=== PATIENT | female | born 1995 | race Caucasian/White ===

== ENCOUNTER 2019-03-05 19:46 | Inpatient (IN) | payer MEDICAID ==
[2019-03-05] MEDS ORDERED: Lactated Ringers 1,000 ML IV ONE (21:10)
[2019-03-05] MEDS ORDERED: Nalbuphine 10 MG/1 ML Vial IVPUSH ONE (21:10)
[2019-03-05] MEDS ORDERED: Lidocaine 1% 50 ML MDV INJECT ONE (21:39)
[2019-03-05] MEDS ORDERED: Oxytocin/Lactated Ringers 10 UNIT/1,000 ML BAG IV SCH ×2 (21:45)
[2019-03-05] MEDS ORDERED: Nalbuphine 10 MG/1 ML Vial IVPUSH PRN (21:54)
[2019-03-05] MEDS ORDERED: Ondansetron 4 MG/2 ML SDV IVPUSH PRN ×2 (23:10→23:51)
[2019-03-05] MEDS ORDERED: Ampicillin 2 GM in Sodium Chloride 0.9% 100 ML IV ONE (23:30)
[2019-03-05] MEDS: Lactated Ringers 1,000 ML IV SCH ×2 (23:44→23:53)
[2019-03-05] MEDS ORDERED: Phenylephrine 1 MG in Sodium Chloride 0.9% 10 ML IV SCH (23:45)
[2019-03-05] MEDS ORDERED: fentaNYL 100 MCG/2 ML SDV EPIDUR PRN (23:51)
[2019-03-05] MEDS ORDERED: fentaNYL/Bupivacaine/NS 2 MCG-0.125% 250 ML EPIDUR PRN (23:51)
[2019-03-05] MEDS ORDERED: ePHEDrine 50 MG/ML SDV IVPUSH PRN (23:51)
--- NOTE | 2019-03-05 23:57 | PCM.PREANE ---
Preanesthetic Assessment - Anesthesia/Transfusion/Family Hx Anesthesia History: Prior Anesthesia Without Reaction Family History of Anesthesia Reaction: No Transfusion History: No Prior Transfusion(s) Intubation History: Unknown - Review of Systems General: No Symptoms Pulmonary: No Symptoms Cardiovascular: No Symptoms Gastrointestinal: No Symptoms (GERD) Neurological: No Symptoms, Headache (Migraines) Other: Reports: None - Physical Assessment NPO Status Date: 03/05/19 NPO Status Time: 17:50 Vital Signs: Last Vital Signs Temp 36.6 C 03/05/19 19:58 Pulse 95 03/05/19 19:58 Resp 14 03/05/19 19:58 BP 109/66 03/05/19 19:58 Pulse Ox 99 03/05/19 19:58 Height: 1.57 m Weight: 64.773 kg ASA Class: 2 Mental Status: Alert & Oriented x3 Airway Class: Mallampati = 2 Dentition: Reports: Normal Dentition, Caries Thyro-Mental Finger Breadths: 3 Mouth Opening Finger Breadths: 3 ROM/Head Extension: Full Lungs: Clear to Auscultation, Normal Respiratory Effort Cardiovascular: Regular Rate, Regular Rhythm, No Murmurs - Lab Values: Laboratory Last Values WBC 15.72 K/mm3 (3.98-10.04) H 03/05/19 22:05 RBC 3.75 M/mm3 (3.98-5.22) L 03/05/19 22:05 Hgb 10.5 gm/dl (11.2-15.7) L 03/05/19 22:05 Hct 32.3 % (34.1-44.9) L 03/05/19 22:05 MCV 86.1 fl (79.4-94.8) 03/05/19 22:05 MCH 28.0 pg (25.6-32.2) 03/05/19 22:05 MCHC 32.5 g/dl (32.2-35.5) 03/05/19 22:05 RDW Std Deviation 39.8 fL (36.4-46.3) 03/05/19 22:05 Plt Count 217 K/mm3 (182-369) 03/05/19 22:05 MPV 10.0 fl (9.4-12.3) 03/05/19 22:05 Neut % (Auto) 71.2 % (34.0-71.1) H 03/05/19 22:05 Lymph % (Auto) 20.0 % (19.3-51.7) 03/05/19 22:05 [place] % (Auto) 7.1 % (4.7-12.5) 03/05/19 22:05 Eos % (Auto) 0.6 (0.7-5.8) L 03/05/19 22:05 Baso % (Auto) 0.3 % (0.1-1.2) 03/05/19 22:05 Neut # (Auto) 11.20 K/mm3 (1.56-6.13) H 03/05/19 22:05 Lymph # (Auto) 3.15 K/mm3 (1.18-3.74) 03/05/19 22:05 [place] # (Auto) 1.12 K/mm3 (0.24-0.36) H 03/05/19 22:05 Eos # (Auto) 0.09 K/mm3 (0.04-0.36) 03/05/19 22:05 Baso # (Auto) 0.04 K/mm3 (0.01-0.08) 03/05/19 22:05 Manual Slide Review Abnormal smear 03/05/19 22:05 Urine Color Light yellow (Yellow) 03/05/19 22:05 Urine Appearance Clear (Clear) 03/05/19 22:05 Urine pH 8.0 (5.0-8.0) 03/05/19 22:05 Ur Specific [place] 1.015 (1.005-1.030) 03/05/19 22:05 Urine Protein Negative (Negative) 03/05/19 22:05 Urine Glucose (UA) Negative (Negative) 03/05/19 22:05 Urine Ketones 2+ (Negative) H 03/05/19 22:05 Urine Occult Blood Negative (Negative) 03/05/19 22:05 Urine Nitrite Negative (Negative) 03/05/19 22:05 Urine Bilirubin Negative (Negative) 03/05/19 22:05 Urine Urobilinogen 0.2 (0.2-1.0) 03/05/19 22:05 Ur Leukocyte Esterase Negative (Negative) 03/05/19 22:05 Urine RBC Not seen /hpf (0-5) 03/05/19 22:05 Urine WBC 0-5 /hpf (0-5) 03/05/19 22:05 Ur Squamous Epith Cells 0-5 /hpf (0-5) 03/05/19 22:05 Urine Bacteria Rare /hpf (FEW) 03/05/19 22:05 Urine Mucus Not seen /hpf (FEW) 03/05/19 22:05 Blood Type A POSITIVE 03/05/19 22:05 Gel Antibody Screen Negative 03/05/19 22:05 Above labs reviewed and noted and within acceptable ranges to proceed with epidural. - Allergies Allergies/Adverse Reactions: Allergies Allergy/AdvReac Type Severity Reaction Status Date / Time codeine Allergy Hives Verified 03/05/19 21:11 - Anesthesia Plan Pre-Op Medication Ordered: None - Acknowledgements Anesthesia Type Planned: Epidural Pt an Appropriate Candidate for the Planned Anesthesia: Yes Alternatives and Risks of Anesthesia Discussed w Pt/Guardian: Yes Pt/Guardian Understands and Agrees with Anesthesia Plan: Yes PreAnesthesia Questionnaire - HOME MEDS Home Medications: Home Meds PNV95/Ferrous Fumarate/FA [ Tablet] 1 tab PO DAILY 03/05/19 [History] - CURRENT (IN HOUSE) MEDS Current Meds: Current Medications Acetaminophen (Tylenol) 650 mg PO Q4H PRN PRN Reason: Pain (Mild 1-3) and fever Calcium Carbonate/Glycine (Tums) 1,000 mg PO Q2HR PRN PRN Reason: Indigestion Ephedrine Sulfate (Ephedrine Sulfate) 5 mg IVPUSH ASDIRECTED PRN PRN Reason: Hypotension Fentanyl (Sublimaze) 100 mcg EPIDUR Q3H PRN PRN Reason: Pain Fentanyl/Bupivacaine HCl (Fentanyl/Bupivacaine/Ns 2 Mcg-0.125% 250 Ml) ml EPIDUR CONTINUOUS PRN PRN Reason: Pain Lactated Ringer's (Ringers, Lactated) 1,000 mls @ 125 mls/hr IV ASDIRECTED MARIPOSA Last Admin: 03/05/19 23:44 Dose: 125 mls/hr Oxytocin/Lactated Ringer's (Pitocin In Lr 10 Units/1,000 Ml) 10 unit in 1,000 mls @ 12 mls/hr IV TITRATE MARIPOSA; Protocol Oxytocin/Lactated Ringer's (Pitocin In Lr 10 Units/1,000 Ml) 10 unit in 1,000 mls @ 100 mls/hr IV .CONTINUOUS MARIPOSA; Protocol Ampicillin Sodium 2 gm/ Sodium (Chloride) 100 mls @ 200 mls/hr IV ONETIME ONE Stop: 03/05/19 23:59 Ampicillin Sodium 1 gm/ Sodium (Chloride) 100 mls @ 200 mls/hr IV Q4H MARIPOSA Phenylephrine HCl 1 mg/ Sodium (Chloride) 10.1 mls @ 1 mls/sec IV TITRATE MARIPOSA; Protocol Nalbuphine HCl (Nubain) 10 mg IVPUSH Q3H PRN PRN Reason: Pain (severe 7-10) Ondansetron HCl (Zofran) 4 mg IVPUSH Q4H PRN PRN Reason: Nausea/Vomiting Ondansetron HCl (Zofran) 4 mg IVPUSH ONETIME PRN PRN Reason: Nausea/Vomiting Discontinued Medications Lactated Ringer's (Ringers, Lactated) 1,000 mls @ 999 mls/hr IV .BOLUS ONE Stop: 03/05/19 22:10 Last Admin: 03/05/19 23:41 Dose: Not Given Lidocaine HCl (Xylocaine 1%) 50 ml INJECT ONETIME ONE Stop: 03/05/19 21:40 Nalbuphine HCl (Nubain) 5 mg IVPUSH ONETIME ONE Stop: 03/05/19 21:11
[2019-03-06] MEDS ORDERED: Bupivacaine 0.25% 10 ML SDV ONE
[2019-03-06] MEDS ORDERED: ePHEDrine 50 MG/ML SDV ONE
[2019-03-06] MEDS: Calcium Carbonate 500 MG Tab.Chew PO PRN ×2 (00:09→12:58)
[2019-03-06] MEDS: Lactated Ringers 1,000 ML IV SCH ×3 (01:49→07:26)
[2019-03-06] MEDS: Ampicillin 1 GM in Sodium Chloride 0.9% 100 ML IV SCH ×3 (04:52→12:45)
[2019-03-06] MEDS: Acetaminophen 325 MG Tab PO PRN ×3 (07:26→22:13)
--- NOTE | 2019-03-06 16:36 | PCM.DEL ---
L & D Note - General Info Date of Service: 03/06/19 Mother's Due Date: 04/02/19 - Delivery Note Labor: Spontaneous, Augmented by ARM Infant Delivery Method: Spontaneous Vaginal Delivery-Single Delivery Mode: Spontaneous Presentation: Left Occiput Anterior (ADOLFO) Nuchal Cord: None Anesthesia Type: Epidural Amniotic Fluid Description: Clear Episiotomy Type: None Laceration: 1st Degree Suture type: Vicryl Suture size: 3-0 Placenta: Intact, Spontaneous Cord: 3 Vessels Estimated Blood Loss: 200 Resuscitation Needed: Yes [place]: Suctioned, Bulb Syringe, Stimulated, Warmed Provider: Lucero Mlaone Score 1 min: 7 Score 5 min: 8 Second Stage Interventions: Reports: Encouragement Given Delivery Comments (Free Text/Narrative):: Stage 1: Leeanne was admitted on 03/05/19 for signs of labor and transfer from [place] via ambulance at approximately 36 weeks gestational age. On admission the patient's cervix was dilated 3 cm and she was of unknown GBS status. Epidural was placed for anesthesia. Patient progressed to 4 cm and ARM was performed by Dr. Malone. The patient then progressed to complete and pushing. Stage 2:On 03/06/19 patient had a normal vaginal delivery of a live female infant at 1558. Apgars of 7 and 8. Weight of 2980 grams (6.2 lbs) Length of 19.5. There was no nuchal cord. delivered in ADOLFO position. The cord was double clamped and cut by father of the baby. Infant was placed on the mother's abdomen and stimulated and then taken to the warmer for resuscitation. Stage 3: She had spontaneous delivery of an intact placenta in Birgit presentation. Three vessel cord. She was given Pitocin and fundal massage. She had a midline 1st degree perineal laceration repaired with 3-0 Vicryl. Mom was stable to recovery, baby taken to the nursery for further oxygen due to retractions and grunting. EBL of 200 mL. - General Info Date of Service: 03/06/19 - Patient Data Vitals - Most Recent: Last Vital Signs Temp 97.9 F 03/05/19 19:58 Pulse 95 03/05/19 19:58 Resp 14 03/05/19 19:58 BP 109/66 03/05/19 19:58 Pulse Ox 99 03/05/19 19:58 Weight - Most Recent: 64.773 kg I&O - Last 24 Hours: Intake & Output 03/06/19 03/06/19 03/06/19 06:59 14:59 22:59 Intake Total 4100 60 Balance 4100 60 Lab Results Last 24 Hours: Laboratory Results - last 24 hr 03/05/19 03/05/19 03/05/19 Range/Units 22:05 22:05 22:05 WBC 15.72 H (3.98-10.04) K/mm3 RBC 3.75 L (3.98-5.22) M/mm3 Hgb 10.5 L (11.2-15.7) gm/dl Hct 32.3 L (34.1-44.9) % MCV 86.1 (79.4-94.8) fl MCH 28.0 (25.6-32.2) pg MCHC 32.5 (32.2-35.5) g/dl RDW Std Deviation 39.8 (36.4-46.3) fL Plt Count 217 (182-369) K/mm3 MPV 10.0 (9.4-12.3) fl Neut % (Auto) 71.2 H (34.0-71.1) % Lymph % (Auto) 20.0 (19.3-51.7) % [place] % (Auto) 7.1 (4.7-12.5) % Eos % (Auto) 0.6 L (0.7-5.8) Baso % (Auto) 0.3 (0.1-1.2) % Neut # (Auto) 11.20 H (1.56-6.13) K/mm3 Lymph # (Auto) 3.15 (1.18-3.74) K/mm3 [place] # (Auto) 1.12 H (0.24-0.36) K/mm3 Eos # (Auto) 0.09 (0.04-0.36) K/mm3 Baso # (Auto) 0.04 (0.01-0.08) K/mm3 Manual Slide Review Abnormal smear Urine Color Light yellow (Yellow) Urine Appearance Clear (Clear) Urine pH 8.0 (5.0-8.0) Ur Specific [place] 1.015 (1.005-1.030) Urine Protein Negative (Negative) Urine Glucose (UA) Negative (Negative) Urine Ketones 2+ H (Negative) Urine Occult Blood Negative (Negative) Urine Nitrite Negative (Negative) Urine Bilirubin Negative (Negative) Urine Urobilinogen 0.2 (0.2-1.0) Ur Leukocyte Esterase Negative (Negative) Urine RBC Not seen (0-5) /hpf Urine WBC 0-5 (0-5) /hpf Ur Squamous Epith Cells 0-5 (0-5) /hpf Urine Bacteria Rare (FEW) /hpf Urine Mucus Not seen (FEW) /hpf Blood Type A POSITIVE Gel Antibody Screen Negative Med Orders - Current: Current Medications Acetaminophen (Tylenol) 650 mg PO Q4H PRN PRN Reason: Pain (Mild 1-3) and fever Last Admin: 03/06/19 11:41 Dose: 650 mg Calcium Carbonate/Glycine (Tums) 1,000 mg PO Q2HR PRN PRN Reason: Indigestion Last Admin: 03/06/19 12:58 Dose: 1,000 mg Ephedrine Sulfate (Ephedrine Sulfate) 5 mg IVPUSH ASDIRECTED PRN PRN Reason: Hypotension Fentanyl (Sublimaze) 100 mcg EPIDUR Q3H PRN PRN Reason: Pain Last Admin: 03/06/19 00:03 Dose: 100 mcg Fentanyl/Bupivacaine HCl (Fentanyl/Bupivacaine/Ns 2 Mcg-0.125% 250 Ml) 0 ml EPIDUR CONTINUOUS PRN PRN Reason: Pain Last Admin: 03/06/19 00:04 Dose: 250 ml Lactated Ringer's (Ringers, Lactated) 1,000 mls @ 125 mls/hr IV ASDIRECTED MARIPOSA Last Admin: 03/06/19 07:26 Dose: 125 mls/hr Oxytocin/Lactated Ringer's (Pitocin In Lr 10 Units/1,000 Ml) 10 unit in 1,000 mls @ 12 mls/hr IV TITRATE MARIPOSA; Protocol Last Titration: 03/06/19 16:00 Dose: 500 mls/hr Oxytocin/Lactated Ringer's (Pitocin In Lr 10 Units/1,000 Ml) 10 unit in 1,000 mls @ 100 mls/hr IV .CONTINUOUS MARIPOSA; Protocol Ampicillin Sodium 1 gm/ Sodium (Chloride) 100 mls @ 200 mls/hr IV Q4H MARIPOSA Last Admin: 03/06/19 12:45 Dose: 200 mls/hr Phenylephrine HCl 1 mg/ Sodium (Chloride) 10.1 mls @ 1 mls/sec IV TITRATE MARIPOSA; Protocol Nalbuphine HCl (Nubain) 10 mg IVPUSH Q3H PRN PRN Reason: Pain (severe 7-10) Ondansetron HCl (Zofran) 4 mg IVPUSH Q4H PRN PRN Reason: Nausea/Vomiting Last Admin: 03/06/19 01:31 Dose: 4 mg Ondansetron HCl (Zofran) 4 mg IVPUSH ONETIME PRN PRN Reason: Nausea/Vomiting Discontinued Medications Lactated Ringer's (Ringers, Lactated) 1,000 mls @ 999 mls/hr IV .BOLUS ONE Stop: 03/05/19 22:10 Last Admin: 03/05/19 23:41 Dose: Not Given Ampicillin Sodium 2 gm/ Sodium (Chloride) 100 mls @ 200 mls/hr IV ONETIME ONE Stop: 03/05/19 23:59 Last Admin: 03/05/19 23:52 Dose: 200 mls/hr Lidocaine HCl (Xylocaine 1%) 50 ml INJECT ONETIME ONE Stop: 03/05/19 21:40 Nalbuphine HCl (Nubain) 5 mg IVPUSH ONETIME ONE Stop: 03/05/19 21:11 - Problem List & Annotations (1) with 36 to 37 weeks completed gestation SNOMED Code(s): 158390120 Code(s): NPN7809 - Status: Acute Current Visit: Yes (2) Active labor SNOMED Code(s): 6500072 Code(s): O60.10X0 - LABOR W DELIVERY, UNSP TRIMESTER, UNSP Status: Acute Current Visit: Yes (3) Vaginal delivery SNOMED Code(s): 675514485 Code(s): O80 - ENCOUNTER FOR FULL-TERM UNCOMPLICATED DELIVERY Status: Acute Current Visit: Yes (4) First degree perineal laceration during delivery SNOMED Code(s): 909094405 Code(s): O70.0 - FIRST DEGREE PERINEAL LACERATION DURING DELIVERY Status: Acute Current Visit: Yes - Problem List Review Problem List Initiated/Reviewed/Updated: Yes - Plan Plan:: Plan: * Admit to inpatient following * Continue Pitocin per protocol following delivery of placenta and lactated ringers until able to resume regular diet * Regular diet * Vitals per unit routine * assistance as needed * Continue to assess for Lochia * Tylenol and ibuprofen for pain management * Planned discharge home day number two
--- NOTE | 2019-03-06 16:38 | PCM.LDHP ---
L&D History of Present Illness - General Date of Service: 03/06/19 Admit Problem/Dx: Patient Status Order with Admit Dx/Problem 03/05/19 19:50 Patient Status [ADT] Routine 03/05/19 22:00 Patient Status [ADT] Routine Admission Diagnosis/Problem Admission Diagnosis/Problem Source of Information: Patient, Family History Limitations: Reports: No Limitations - History of Present Illness Introduction:: Patient is a 23 year old female who presents at approximately 36 1/7 gestational age for evaluation of labor. The patient was transferred from [place] via ambulance. Per the patient, the patient's care has been routine, however records are unavailable at this time. She reports that she received care in [place] and has signed a release of information. Per the patient, the AYO is 04/02/19. Patient does report having an ultrasound done. Labs taken in [place] prior to transfer indicate a WVC of 14.8, hemoglobin of 10.5 and platelets of 220,000. Unknown GBS status. Prior OB history includes a term with of a live female with approximately 15 minutes of pushing. Patient desires an epidural and plans to bottle feed. Pain Score: 6 - Related Data Allergies/Adverse Reactions: Allergies Allergy/AdvReac Type Severity Reaction Status Date / Time codeine Allergy Hives Verified 03/05/19 21:11 Home Medications: Home Meds PNV95/Ferrous Fumarate/FA [ Tablet] 1 tab PO DAILY 03/05/19 [History] Past Medical History Gastrointestinal History: Reports: GERD [employer] History: Reports: Neurological History: Reports: Migraines - Past Surgical History HEENT Surgical History: Reports: Myringotomy w Tube(s), Tonsillectomy Social & Family History - Family History Family Medical History: Noncontributory - Tobacco Use Smoking Status *Q: Never Smoker Second Hand Smoke Exposure: No - Caffeine Use Caffeine Use: Reports: None - Recreational Drug Use Recreational Drug Use: No H&P Review of Systems - Review of Systems: Review Of Systems: See Below General: Reports: No Symptoms HEENT: Reports: No Symptoms Pulmonary: Reports: No Symptoms Cardiovascular: Reports: No Symptoms Gastrointestinal: Reports: No Symptoms Musculoskeletal: Reports: No Symptoms Skin: Reports: No Symptoms Neurological: Reports: No Symptoms L&D Exam - Exam Exam: See Below - Vital Signs Vital Signs: Last Vital Signs Temp 97.9 F 03/05/19 19:58 Pulse 95 03/05/19 19:58 Resp 14 03/05/19 19:58 BP 109/66 03/05/19 19:58 Pulse Ox 99 03/05/19 19:58 Weight: 64.773 kg - OB Specific Contraction Intensity: Mild to Moderate Movement: Active Heart Tones: Present Heart Rate (FHR) Variability: Moderate (6-25 bmp) Presentation: Left Occiput Anterior (ADOLFO) - Malone Score Malone Score Dilation: 3-4 cm - Exam General: Alert, Oriented HEENT: Conjunctiva Clear, EOMI, Hearing Intact, Nares Patent, Pupils Equal Lungs: Clear to Auscultation, Normal Respiratory Effort Cardiovascular: Regular Rate, Regular Rhythm Back Exam: Normal Inspection Extremities: Normal Inspection, Non-Tender Skin: Warm, Dry, Intact Psychiatric: Alert, Normal Affect, Normal Mood - Patient Data Lab Results Last 24 hrs: Laboratory Results - last 24 hr 03/05/19 03/05/19 03/05/19 Range/Units 22:05 22:05 22:05 WBC 15.72 H (3.98-10.04) K/mm3 RBC 3.75 L (3.98-5.22) M/mm3 Hgb 10.5 L (11.2-15.7) gm/dl Hct 32.3 L (34.1-44.9) % MCV 86.1 (79.4-94.8) fl MCH 28.0 (25.6-32.2) pg MCHC 32.5 (32.2-35.5) g/dl RDW Std Deviation 39.8 (36.4-46.3) fL Plt Count 217 (182-369) K/mm3 MPV 10.0 (9.4-12.3) fl Neut % (Auto) 71.2 H (34.0-71.1) % Lymph % (Auto) 20.0 (19.3-51.7) % [place] % (Auto) 7.1 (4.7-12.5) % Eos % (Auto) 0.6 L (0.7-5.8) Baso % (Auto) 0.3 (0.1-1.2) % Neut # (Auto) 11.20 H (1.56-6.13) K/mm3 Lymph # (Auto) 3.15 (1.18-3.74) K/mm3 [place] # (Auto) 1.12 H (0.24-0.36) K/mm3 Eos # (Auto) 0.09 (0.04-0.36) K/mm3 Baso # (Auto) 0.04 (0.01-0.08) K/mm3 Manual Slide Review Abnormal smear Urine Color Light yellow (Yellow) Urine Appearance Clear (Clear) Urine pH 8.0 (5.0-8.0) Ur Specific [place] 1.015 (1.005-1.030) Urine Protein Negative (Negative) Urine Glucose (UA) Negative (Negative) Urine Ketones 2+ H (Negative) Urine Occult Blood Negative (Negative) Urine Nitrite Negative (Negative) Urine Bilirubin Negative (Negative) Urine Urobilinogen 0.2 (0.2-1.0) Ur Leukocyte Esterase Negative (Negative) Urine RBC Not seen (0-5) /hpf Urine WBC 0-5 (0-5) /hpf Ur Squamous Epith Cells 0-5 (0-5) /hpf Urine Bacteria Rare (FEW) /hpf Urine Mucus Not seen (FEW) /hpf Blood Type A POSITIVE Gel Antibody Screen Negative Result Diagrams: 03/05/19 22:05 - Problem List (1) with 36 to 37 weeks completed gestation SNOMED Code(s): 297649539 ICD Code: [id number] - Status: Acute Current Visit: Yes Problem List Initiated/Reviewed/Updated: Yes Orders Last 24hrs: Active Orders 24 hr Category Date Time Status Patient Status [ADT] Routine ADT 03/05/19 19:50 Active Patient Status [ADT] Routine ADT 03/05/19 22:00 Active Notify Provider [RC] ASDIRECTED Care 03/05/19 23:51 Active Oxygen Therapy [RC] ASDIRECTED Care 03/05/19 23:51 Active Peripheral IV Care [RC] . DIRECTED Care 03/05/19 23:11 Active Pulse Oximetry [RC] ASDIRECTED Care 03/05/19 23:51 Active Urinary Catheter Assessment [RC] ASDIRECTED Care 03/05/19 23:10 Active Vital Signs [RC] PER UNIT ROUTINE Care 03/05/19 19:50 Active GROUP B STREP BY PCR [MOLEC] Stat Lab 03/06/19 02:27 Ordered RAPID PLASMA REAGIN,RPR [CHEM] Routine Lab 03/05/19 21:52 Ordered Acetaminophen [Tylenol] Med 03/05/19 23:10 Active 650 mg PO Q4H PRN Ampicillin 1 gm Med 03/06/19 04:30 Active Sodium Chloride 0.9% [Normal Saline] 100 ml IV Q4H Bupivicaine/fentaNYL/NS [fentaNYL/Bupivacaine/NS 2 MCG- Med 03/05/19 23:51 Active 0.125% 250 ML] 0 ml EPIDUR CONTINUOUS PRN Calcium Carbonate [Tums] Med 03/05/19 23:43 Active 1,000 mg PO Q2HR PRN Lactated Ringers [Ringers, Lactated] 1,000 ml Med 03/05/19 21:15 Active IV ASDIRECTED Nalbuphine [Nubain] Med 03/05/19 21:54 Active 10 mg IVPUSH Q3H PRN Ondansetron [Zofran] Med 03/05/19 23:51 Active 4 mg IVPUSH ONETIME PRN Ondansetron [Zofran] Med 03/05/19 23:10 Active 4 mg IVPUSH Q4H PRN Oxytocin/Lactated Ringers [Pitocin in LR 10 Units/1,000 Med 03/05/19 21:45 Active ML] 10 unit in 1,000 ml IV .CONTINUOUS Oxytocin/Lactated Ringers [Pitocin in LR 10 Units/1,000 Med 03/05/19 21:45 Active ML] 10 unit in 1,000 ml IV TITRATE Phenylephrine [Malcolm-Synephrine] 1 mg Med 03/05/19 23:45 Active Sodium Chloride 0.9% [Normal Saline] 10 ml IV TITRATE ePHEDrine [ePHEDrine sulfate] Med 03/05/19 23:51 Active 5 mg IVPUSH ASDIRECTED PRN fentaNYL [Sublimaze] Med 03/05/19 23:51 Active 100 mcg EPIDUR Q3H PRN Peripheral IV Insertion Adult [OM.PC] Routine Oth 03/05/19 23:11 Ordered Resuscitation Status Routine Resus Stat 03/05/19 19:50 Ordered Medication Orders Acetaminophen (Tylenol) 650 mg PO Q4H PRN PRN Reason: Pain (Mild 1-3) and fever Last Admin: 03/06/19 11:41 Dose: 650 mg Admin: 11/07/19 07:26 Dose: 650 mg Calcium Carbonate/Glycine (Tums) 1,000 mg PO Q2HR PRN PRN Reason: Indigestion Last Admin: 03/06/19 12:58 Dose: 1,000 mg Admin: 03/06/19 00:09 Dose: 1,000 mg Ephedrine Sulfate (Ephedrine Sulfate) 5 mg IVPUSH ASDIRECTED PRN PRN Reason: Hypotension Fentanyl (Sublimaze) 100 mcg EPIDUR Q3H PRN PRN Reason: Pain Last Admin: 03/06/19 00:03 Dose: 100 mcg Fentanyl/Bupivacaine HCl (Fentanyl/Bupivacaine/Ns 2 Mcg-0.125% 250 Ml) 0 ml EPIDUR CONTINUOUS PRN PRN Reason: Pain Last Admin: 03/06/19 00:04 Dose: 250 ml Lactated Ringer's (Ringers, Lactated) 1,000 mls @ 125 mls/hr IV ASDIRECTED MARIPOSA Last Admin: 03/06/19 07:26 Dose: 125 mls/hr Infusion: 03/06/19 07:26 Dose: 125 mls/hr Admin: 03/06/19 04:51 Dose: 125 mls/hr Infusion: 03/06/19 04:51 Dose: 125 mls/hr Admin: 03/06/19 01:49 Dose: 125 mls/hr Infusion: 03/06/19 01:49 Dose: 125 mls/hr Admin: 03/05/19 23:53 Dose: 125 mls/hr Infusion: 03/05/19 23:53 Dose: 125 mls/hr Admin: 03/05/19 23:44 Dose: 125 mls/hr Oxytocin/Lactated Ringer's (Pitocin In Lr 10 Units/1,000 Ml) 10 unit in 1,000 mls @ 12 mls/hr IV TITRATE MARIPOSA; Protocol Last Titration: 03/06/19 16:00 Dose: 500 mls/hr Titration: 03/06/19 11:42 Dose: 12 munits/min, 72 mls/hr Titration: 03/06/19 09:30 Dose: 10 munits/min, 60 mls/hr Titration: 03/06/19 08:50 Dose: 8 munits/min, 48 mls/hr Titration: 03/06/19 08:15 Dose: 6 munits/min, 36 mls/hr Titration: 03/06/19 07:30 Dose: 4 munits/min, 24 mls/hr Admin: 03/06/19 05:59 Dose: 2 munits/min, 12 mls/hr Oxytocin/Lactated Ringer's (Pitocin In Lr 10 Units/1,000 Ml) 10 unit in 1,000 mls @ 100 mls/hr IV .CONTINUOUS MARIPOSA; Protocol Ampicillin Sodium 1 gm/ Sodium (Chloride) 100 mls @ 200 mls/hr IV Q4H MARIPOSA Last Admin: 03/06/19 12:45 Dose: 200 mls/hr Infusion: 03/06/19 09:19 Dose: 200 mls/hr Admin: 03/06/19 08:49 Dose: 200 mls/hr Infusion: 03/06/19 05:22 Dose: 200 mls/hr Admin: 03/06/19 04:52 Dose: 200 mls/hr Phenylephrine HCl 1 mg/ Sodium (Chloride) 10.1 mls @ 1 mls/sec IV TITRATE MARIPOSA; Protocol Nalbuphine HCl (Nubain) 10 mg IVPUSH Q3H PRN PRN Reason: Pain (severe 7-10) Ondansetron HCl (Zofran) 4 mg IVPUSH Q4H PRN PRN Reason: Nausea/Vomiting Last Admin: 03/06/19 01:31 Dose: 4 mg Ondansetron HCl (Zofran) 4 mg IVPUSH ONETIME PRN PRN Reason: Nausea/Vomiting Assessment/Plan Comment:: Assessment: * Spontaneous active labor at 36 1/7 weeks gestational age * Group B strep status unknown Plan: We will continue to monitor patient and consider rupture of membranes to augment labor if needed. Patient would like an epidural at this time. We will also collect GBS screen at this time and treat accordingly, or empirically if needed.
[2019-03-06] MEDS ORDERED: Witch Hazel Medicated Pads 40/Jar TOP PRN (18:34)
[2019-03-06] MEDS ORDERED: Benzocaine/Menthol 20%-0.5% Spray 56 GM Canister TOP PRN (18:34)
[2019-03-06] MEDS: Ibuprofen 600 MG Tab PO PRN (18:39)
[2019-03-07] MEDS: Ampicillin 1 GM in Sodium Chloride 0.9% 100 ML IV SCH (05:11)
--- NOTE | 2019-03-07 06:26 | PCM.PNPP ---
- General Info Date of Service: 03/07/19 Functional Status: Reports: Pain Controlled - Review of Systems General: Reports: No Symptoms HEENT: Reports: No Symptoms Pulmonary: Reports: No Symptoms Cardiovascular: Reports: No Symptoms Gastrointestinal: Reports: No Symptoms Genitourinary: Reports: No Symptoms Musculoskeletal: Reports: No Symptoms Skin: Reports: No Symptoms Neurological: Reports: No Symptoms Psychiatric: Reports: No Symptoms - General Info Date of Service: 03/07/19 - Patient Data Vital Signs - Most Recent: Last Vital Signs Temp 36.6 C 03/07/19 02:19 Pulse 88 03/07/19 02:19 Resp 14 03/07/19 02:19 BP 107/60 03/07/19 02:19 Pulse Ox 95 03/07/19 02:19 Weight - Most Recent: 64.773 kg I&O - Last 24 Hours: Intake & Output 03/06/19 03/06/19 03/07/19 14:59 22:59 06:59 Intake Total 5000 Output Total 1900 Balance 3100 Lab Results - Last 24 Hours: Laboratory Results - last 24 hr 03/05/19 03/06/19 Range/Units 22:05 02:40 RPR Non-reactive (NONREACTIVE) Group B Strep (PCR) Negative (NEGATIVE) Med Orders - Current: Current Medications Acetaminophen (Tylenol) 650 mg PO Q4H PRN PRN Reason: Pain (Mild 1-3) and fever Last Admin: 03/06/19 22:13 Dose: 650 mg Benzocaine/Menthol (Dermoplast Pain Relief [place]) 1 gm TOP ASDIRECTED PRN PRN Reason: perineal pain Last Admin: 03/06/19 18:40 Dose: 1 applic Calcium Carbonate/Glycine (Tums) 1,000 mg PO Q2HR PRN PRN Reason: Indigestion Last Admin: 03/06/19 12:58 Dose: 1,000 mg Ephedrine Sulfate (Ephedrine Sulfate) 5 mg IVPUSH ASDIRECTED PRN PRN Reason: Hypotension Fentanyl (Sublimaze) 100 mcg EPIDUR Q3H PRN PRN Reason: Pain Last Admin: 03/06/19 00:03 Dose: 100 mcg Fentanyl/Bupivacaine HCl (Fentanyl/Bupivacaine/Ns 2 Mcg-0.125% 250 Ml) 0 ml EPIDUR CONTINUOUS PRN PRN Reason: Pain Last Admin: 03/06/19 00:04 Dose: 250 ml Lactated Ringer's (Ringers, Lactated) 1,000 mls @ 125 mls/hr IV ASDIRECTED MARIPOSA Last Admin: 03/06/19 07:26 Dose: 125 mls/hr Oxytocin/Lactated Ringer's (Pitocin In Lr 10 Units/1,000 Ml) 10 unit in 1,000 mls @ 12 mls/hr IV TITRATE MARIPOSA; Protocol Last Titration: 03/06/19 16:00 Dose: 500 mls/hr Oxytocin/Lactated Ringer's (Pitocin In Lr 10 Units/1,000 Ml) 10 unit in 1,000 mls @ 100 mls/hr IV .CONTINUOUS MARIPOSA; Protocol Last Admin: 03/06/19 16:30 Dose: 100 mls/hr Phenylephrine HCl 1 mg/ Sodium (Chloride) 10.1 mls @ 1 mls/sec IV TITRATE MARIPOSA; Protocol Ibuprofen (Motrin) 600 mg PO Q6H PRN PRN Reason: Pain Last Admin: 03/06/19 18:39 Dose: 600 mg Nalbuphine HCl (Nubain) 10 mg IVPUSH Q3H PRN PRN Reason: Pain (severe 7-10) Ondansetron HCl (Zofran) 4 mg IVPUSH Q4H PRN PRN Reason: Nausea/Vomiting Last Admin: 03/06/19 01:31 Dose: 4 mg Ondansetron HCl (Zofran) 4 mg IVPUSH ONETIME PRN PRN Reason: Nausea/Vomiting Witch Natacha (Tucks) 1 pad TOP ASDIRECTED PRN PRN Reason: Hemorrhoids Last Admin: 03/06/19 18:40 Dose: 1 applic Discontinued Medications Lactated Ringer's (Ringers, Lactated) 1,000 mls @ 999 mls/hr IV .BOLUS ONE Stop: 03/05/19 22:10 Last Admin: 03/05/19 23:41 Dose: Not Given Ampicillin Sodium 2 gm/ Sodium (Chloride) 100 mls @ 200 mls/hr IV ONETIME ONE Stop: 03/05/19 23:59 Last Admin: 03/05/19 23:52 Dose: 200 mls/hr Ampicillin Sodium 1 gm/ Sodium (Chloride) 100 mls @ 200 mls/hr IV Q4H MARIPOSA Last Admin: 03/07/19 05:11 Dose: Not Given Lidocaine HCl (Xylocaine 1%) 50 ml INJECT ONETIME ONE Stop: 03/05/19 21:40 Last Admin: 03/07/19 05:12 Dose: Not Given Nalbuphine HCl (Nubain) 5 mg IVPUSH ONETIME ONE Stop: 03/05/19 21:11 Last Admin: 03/07/19 05:12 Dose: Not Given - Infant Interaction Infant Disposition, : [place] at Bedside Support Person: Significant Other - Recovery Exam Fundal Tone: Firm Fundal Level: At Umbilicus Fundal Placement: Midline Lochia Amount: Small Lochia Color: Rubra/Red Perineum Description: Other (see below) Other Perinuem Description: 1 degree laceration with repair Episiotomy/Laceration: Approximated Bladder Status: Voiding Urinary Elimination: Voided - Exam General: Alert, Oriented HEENT: Pupils Equal Neck: Supple Lungs: Clear to Auscultation, Normal Respiratory Effort Cardiovascular: Regular Rate, Regular Rhythm GI/Abdominal Exam: Normal Bowel Sounds, Soft, Non-Tender, No Organomegaly, No Distention, No Abnormal Bruit, No Mass, Pelvis Stable Extremities: Normal Inspection, Normal Range of Motion, Non-Tender, No Pedal Edema, Normal Capillary Refill Wound/Incisions: Healing Well Neurological: No New Focal Deficit Psy/Mental Status: Alert, Normal Affect, Normal Mood - Problem List Review Problem List Initiated/Reviewed/Updated: Yes - My Orders Last 24 Hours: My Active Orders 03/06/19 15:58 Patient Status [ADT] Routine 03/06/19 18:34 Benzocaine/Menthol [Dermoplast Pain Relief [place]] 1 gm TOP ASDIRECTED PRN Witch Natacha [Tucks] 1 pad TOP ASDIRECTED PRN 03/06/19 18:35 Ibuprofen [Motrin] 600 mg PO Q6H PRN - Assessment Assessment:: day 1. Doing well. Baby level 2. Doing ok. - Plan Plan:: Plan: * Admit to inpatient following * Continue Pitocin per protocol following delivery of placenta and lactated ringers until able to resume regular diet * Regular diet * Vitals per unit routine * assistance as needed * Continue to assess for Lochia * Tylenol and ibuprofen for pain management * Planned discharge home day number two
[2019-03-07] MEDS: Ibuprofen 600 MG Tab PO PRN ×2 (07:45→17:09)
--- NOTE | 2019-03-07 08:42 | PCM48HPAN ---
Post Anesthesia Note - EVALUATION WITHIN 48HRS OF ANESTHETIC Vital Signs in Normal Range: Yes Patient Participated in Evaluation: Yes Respiratory Function Stable: Yes Airway Patent: Yes Cardiovascular Function Stable: Yes Hydration Status Stable: Yes Pain Control Satisfactory: Yes Nausea and Vomiting Control Satisfactory: Yes Mental Status Recovered: Yes Vital Signs: Last Vital Signs Temp 36.6 C 03/07/19 02:19 Pulse 88 03/07/19 02:19 Resp 14 03/07/19 02:19 BP 107/60 03/07/19 02:19 Pulse Ox 95 03/07/19 02:19 - COMMENTS/OBSERVATIONS Free Text/Narrative:: no anesthesia complications noted
[2019-03-07] MEDS: Acetaminophen 325 MG Tab PO PRN (11:17)
--- NOTE | 2019-03-07 22:55 | PCM.LDHP ---
L&D History of Present Illness - General Date of Service: 03/07/19 Admit Problem/Dx: Patient Status Order with Admit Dx/Problem 03/05/19 19:50 Patient Status [ADT] Routine 03/05/19 22:00 Patient Status [ADT] Routine Admission Diagnosis/Problem Admission Diagnosis/Problem - History of Present Illness Pain Score: 1 - Related Data Allergies/Adverse Reactions: Allergies Allergy/AdvReac Type Severity Reaction Status Date / Time codeine Allergy Hives Verified 03/05/19 21:11 Home Medications: Home Meds [id number]/Ferrous Fumarate/FA [ Tablet] 1 tab PO DAILY 03/05/19 [History] Past Medical History Gastrointestinal History: Reports: [employer] History: Reports: Neurological History: Reports: Migraines - Past Surgical History HEENT Surgical History: Reports: Myringotomy w Tube(s), Tonsillectomy Social & Family History - Family History Family Medical History: Noncontributory - Tobacco Use Smoking Status *Q: Never Smoker Second Hand Smoke Exposure: No - Caffeine Use Caffeine Use: Reports: None - Recreational Drug Use Recreational Drug Use: No H&P Review of Systems - Review of Systems: Review Of Systems: See Below General: Reports: No Symptoms HEENT: Reports: No Symptoms Pulmonary: Reports: No Symptoms Cardiovascular: Reports: No Symptoms Gastrointestinal: Reports: No Symptoms Genitourinary: Reports: No Symptoms Musculoskeletal: Reports: No Symptoms Skin: Reports: No Symptoms Psychiatric: Reports: No Symptoms Neurological: Reports: No Symptoms Hematologic/Lymphatic: Reports: No Symptoms Immunologic: Reports: No Symptoms L&D Exam - Exam Exam: See Below - Vital Signs Vital Signs: Last Vital Signs Temp 36.4 C 03/07/19 14:57 Pulse 95 03/07/19 14:57 Resp 16 03/07/19 14:57 BP 94/46 L 03/07/19 14:57 Pulse Ox 96 03/07/19 14:57 Weight: 64.773 kg - OB Specific Contraction Intensity: Mild to Moderate Movement: Active Heart Tones: Present Heart Rate (FHR) Variability: Moderate (6-25 bmp) Presentation: Vertex - Malone Score Malone Score Dilation: 3-4 cm - Exam General: Alert, Oriented HEENT: PERRLA, Conjunctiva Clear, EACs Clear, EOMI, Hearing Intact, Mucosa Moist & Brenas, Nares Patent, Normal Nasal Septum, Posterior Pharynx Clear, TMs Clear Neck: Supple, Trachea Midline Lungs: Clear to Auscultation, Normal Respiratory Effort Cardiovascular: Regular Rate, Regular Rhythm GI/Abdominal Exam: Normal Bowel Sounds, Soft, Non-Tender, No Organomegaly, No Distention, No Abnormal Bruit, No Mass, Pelvis Stable Rectal Exam: Normal Exam Back Exam: Normal Inspection, Full Range of Motion Extremities: Normal Inspection, Normal Range of Motion, Non-Tender, No Pedal Edema, Normal Capillary Refill Skin: Warm, Dry, Intact Neurological: Cranial Nerves Intact, Reflexes Equal Bilateral Psychiatric: Alert, Normal Affect, Normal Mood - Patient Data Result Diagrams: 03/05/19 22:05 Problem List Initiated/Reviewed/Updated: Yes Orders Last 24hrs: Active Orders 24 hr Category Date Time Status Ready for Discharge [RC] PER UNIT ROUTINE Care 03/07/19 21:11 Active Medication Orders Acetaminophen (Tylenol) 650 mg PO Q4H PRN PRN Reason: Pain (Mild 1-3) and fever Last Admin: 03/07/19 11:17 Dose: 650 mg Admin: 03/06/19 22:13 Dose: 650 mg Admin: 03/06/19 11:41 Dose: 650 mg Admin: 03/06/19 07:26 Dose: 650 mg Benzocaine/Menthol (Dermoplast Pain Relief [place]) 1 gm TOP ASDIRECTED PRN PRN Reason: perineal pain Last Admin: 03/06/19 18:40 Dose: 1 applic Calcium Carbonate/Glycine (Tums) 1,000 mg PO Q2HR PRN PRN Reason: Indigestion Last Admin: 03/06/19 12:58 Dose: 1,000 mg Admin: 03/06/19 00:09 Dose: 1,000 mg Ephedrine Sulfate (Ephedrine Sulfate) 5 mg IVPUSH ASDIRECTED PRN PRN Reason: Hypotension Fentanyl (Sublimaze) 100 mcg EPIDUR Q3H PRN PRN Reason: Pain Last Admin: 03/06/19 00:03 Dose: 100 mcg Fentanyl/Bupivacaine HCl (Fentanyl/Bupivacaine/Ns 2 Mcg-0.125% 250 Ml) 0 ml EPIDUR CONTINUOUS PRN PRN Reason: Pain Last Admin: 03/06/19 00:04 Dose: 250 ml Lactated Ringer's (Ringers, Lactated) 1,000 mls @ 125 mls/hr IV ASDIRECTED MARIPOSA Last Admin: 03/06/19 07:26 Dose: 125 mls/hr Infusion: 03/06/19 07:26 Dose: 125 mls/hr Admin: 03/06/19 04:51 Dose: 125 mls/hr Infusion: 03/06/19 04:51 Dose: 125 mls/hr Admin: 03/06/19 01:49 Dose: 125 mls/hr Infusion: 03/06/19 01:49 Dose: 125 mls/hr Admin: 03/05/19 23:53 Dose: 125 mls/hr Infusion: 03/05/19 23:53 Dose: 125 mls/hr Admin: 03/05/19 23:44 Dose: 125 mls/hr Oxytocin/Lactated Ringer's (Pitocin In Lr 10 Units/1,000 Ml) 10 unit in 1,000 mls @ 12 mls/hr IV TITRATE MARIPOSA; Protocol Last Titration: 03/06/19 16:00 Dose: 500 mls/hr Titration: 03/06/19 11:42 Dose: 12 munits/min, 72 mls/hr Titration: 03/06/19 09:30 Dose: 10 munits/min, 60 mls/hr Titration: 03/06/19 08:50 Dose: 8 munits/min, 48 mls/hr Titration: 03/06/19 08:15 Dose: 6 munits/min, 36 mls/hr Titration: 03/06/19 07:30 Dose: 4 munits/min, 24 mls/hr Admin: 03/06/19 05:59 Dose: 2 munits/min, 12 mls/hr Oxytocin/Lactated Ringer's (Pitocin In Lr 10 Units/1,000 Ml) 10 unit in 1,000 mls @ 100 mls/hr IV .CONTINUOUS MARIPOSA; Protocol Last Admin: 03/06/19 16:30 Dose: 100 mls/hr Phenylephrine HCl 1 mg/ Sodium (Chloride) 10.1 mls @ 1 mls/sec IV TITRATE MARIPOSA; Protocol Ibuprofen (Motrin) 600 mg PO Q6H PRN PRN Reason: Pain Last Admin: 03/07/19 17:09 Dose: 600 mg Admin: 03/07/19 07:45 Dose: 600 mg Admin: 03/06/19 18:39 Dose: 600 mg Nalbuphine HCl (Nubain) 10 mg IVPUSH Q3H PRN PRN Reason: Pain (severe 7-10) Ondansetron HCl (Zofran) 4 mg IVPUSH Q4H PRN PRN Reason: Nausea/Vomiting Last Admin: 03/06/19 01:31 Dose: 4 mg Ondansetron HCl (Zofran) 4 mg IVPUSH ONETIME PRN PRN Reason: Nausea/Vomiting Witcherelle Manzano (Tucks) 1 pad TOP ASDIRECTED PRN PRN Reason: Hemorrhoids Last Admin: 03/06/19 18:40 Dose: 1 applic Assessment/Plan Comment:: Plan: * Admit to inpatient following * Continue Pitocin per protocol following delivery of placenta and lactated ringers until able to resume regular diet * Regular diet * Vitals per unit routine * assistance as needed * Continue to assess for Lochia * Tylenol and ibuprofen for pain management * Discharge today as baby being transferred to [place]
== END 2019-03-07 22:00 | disposition home or self-care (01) | DRG 807 ==
LOC: JD.OBCHECK 19:46 → JD.OB 20:11 → JD.OBCHECK 22:01 → JD.OB 03-06 02:55 → OBSVTOIN 03-06 15:58 → JD.OB 03-06 16:38
PROVIDERS: ADMIT Obstetrics & Gynecology; ATTEND Obstetrics & Gynecology
PROC: 10E0XZZ Delivery of Products of Conception, External Approach (ICD-10-PCS; principal; 2019-03-06)
PROC: 10907ZC Drainage of Amniotic Fluid, Therapeutic from Products of Conception, Via Natural or Artificial Opening (ICD-10-PCS; 2019-03-06)
PROC: 0HQ9XZZ Repair Perineum Skin, External Approach (ICD-10-PCS; 2019-03-06)
DX: O60.10X0 Preterm labor with preterm delivery, unspecified trimester, not applicable or unspecified (principal); O70.0 First degree perineal laceration during delivery; Z37.0 Single live birth; Z3A.36 36 weeks gestation of pregnancy; Z88.5 Allergy status to narcotic agent
CPT/HCPCS: 36415; 51702; 59025; 59409; 81001; 85025; 86592; 86850; 86900; 86901; 87653; A9270-GY; J0290; J2405; J2590; J3010; J3490; J7030; J7120

== ENCOUNTER 2019-04-01 05:51 | Emergency (ER) | payer SELFPAY ==
--- NOTE | 2019-04-01 06:34 | EDM.PDOC ---
<Costa Espinosa - Last Filed: 04/01/19 08:27> ED HPI GENERAL MEDICAL PROBLEM - General Chief Complaint: Abdominal Pain Stated Complaint: gull bladder Time Seen by Provider: 04/01/19 06:05 Source of Information: Reports: Patient, Significant Other (Fiance) History Limitations: Reports: No Limitations - History of Present Illness INITIAL COMMENTS - FREE TEXT/NARRATIVE: I was contacted around 3:[address] Stevens, an Emergency Physician at the [facility]. He relayed that the patient had delivered a baby girl at this facility on 03/05/2019 (our medical records indicate that it was on 03/06/2019), and that she now presented to their emergency department complaining of epigastric and back pain. She had tenderness in her right upper quadrant. A CT scan of her abdomen and pelvis found a small gallstone, and possible bladder wall thickening. There may also have been a right ureterolith, although she did not have CVA tenderness. His plan was to send the patient to our ED by private vehicle. He would push the CT images, and he would discuss the case with our surgeon quality control coordinator. I was then called by Dr. Mayen around 3:48, telling me that she had spoken to Dr. Stevens, and recommended that when the patient arrives at our ED, that we obtain an ultrasound of the right upper quadrant, then call her with the results. The patient tells me that she has been experiencing upper abdominal pain radiating through to her mid-back, on and off for the past 3 days. With her hand , she indicated that her pain is felt across her entire upper abdomen as well as across her entire mid-back, bilaterally. She describes the pain as pressure or stabbing. The pain is made better if she rubs her abdomen, worse if she lies down, takes deep breaths, or walks. There is no association with food. She has had nausea, but no emesis. No recent fever, constipation, diarrhea, or urinary symptoms. No prior similar symptoms. She took ibuprofen, which did not help. Paperwork from the [facility] indicates that her workup included a CBC, CMP, magnesium level, amylase level, lipase level, CPK, troponin, D-dimer, a urinalysis, a urine test, a CT scan of the abdomen and pelvis with IV contrast, and an ECG. Her H/H were mildly depressed at 11.1/33.4, with the remainder of her CBC being unremarkable. Her CMP, including her LFTs, was unremarkable. Her magnesium, amylase, lipase, CPK, troponin, and D-dimer were all within normal limits. Her urinalysis was remarkable for trace leukocyte esterase with 6-15 WBCs, occult blood negative with no RBCs, nitrite negative with rare bacteria seen, and occasional epithelial cells. A urine culture was ordered. Her urine test was negative. The CT scan of her abdomen and pelvis was read as: 1. Very small gallstone or a small focus of calcification in the posterior wall of the distal gallbladder. Probable slight thickening of the gallbladder wall. Periportal edema in the liver raising the possibility of cholecystitis although hepatitis or other processes not excluded. 2. Small left renal stone. Right hydroureteronephrosis, cause and age unknown. 3. Narrowing of the L5-S1 disc. Bilateral ovarian varices. Other findings detailed above. Her ECG demonstrated a normal sinus rhythm at 86 bpm. No atrial enlargement or AV block. No ischemic changes. Normal R-wave progression. No LAD or RAD. No LVH or RVH. No intraventricular conduction delays. The QTc was within normal limits. The patient does not have a PCP. Her Manager Metrology is Dr. Lucero Malone. She did receive an influenza vaccine this season. Treatments [employer]: Reports: IV/IO Bilateral Upper Abdomen Pain Score (Numeric/FACES): 5 - Related Data Allergies Allergy/AdvReac Type Severity Reaction Status Date / Time codeine Allergy Hives Verified 04/01/19 05:59 Home Meds: Home Meds Pnv No.95/Ferrous Fum/Folic AC [ Tablet] 1 tab PO DAILY 03/05/19 [ History] Ondansetron [Zofran] 4 mg BUCCAL Q6H PRN #8 tab 04/01/19 [Rx] oxyCODONE HCl/Acetaminophen [Percocet 5-325 mg Tablet] 1 - 2 each PO Q4H PRN # 12 tablet 04/01/19 [Rx] Past Medical History [employer] History: Reports: - Past Surgical History HEENT Surgical History: Reports: Adenoidectomy, Myringotomy w Tube(s) (bilateral ), Tonsillectomy Social & Family History - Family History Family Medical History: Noncontributory - Tobacco Use Smoking Status *Q: Never Smoker - Caffeine Use Caffeine Use: Reports: None - Alcohol Use Alcohol Use History: No - Recreational Drug Use Recreational Drug Use: No - Living Situation & Occupation Living situation: Reports: Single, with Significant Other (Fiance), with Family (2 kids) Occupation: Unemployed ED ROS GENERAL - Review of Systems Review Of Systems: Comprehensive ROS is negative, except as noted in HPI. ED EXAM, GI/ABD - Physical Exam Exam: See Below Exam Limited By: No Limitations General Appearance: Alert, WD/WN, No Apparent Distress Eyes: Bilateral: Normal Appearance, EOMI Ears: Normal External Exam, Hearing Grossly Normal Nose: Normal Inspection Throat/Mouth: Normal Inspection, Normal Lips, Normal Voice, No Airway Compromise Head: Atraumatic, Normocephalic Neck: Normal Inspection, Full Range of Motion Respiratory/Chest: No Respiratory Distress, Lungs Clear, Normal Breath Sounds, No Accessory Muscle Use Cardiovascular: Normal Peripheral Pulses, Regular Rate, Rhythm, No Edema, No Gallop, No JVD, No Murmur, No Rub GI/Abdominal Exam: Normal Bowel Sounds, Soft, No Organomegaly, No Distention, No Abnormal Bruit, No Mass, Tender (only to a discreet location in the right upper quadrant, and completely nontender elsewhere. Mari's sign is negative.) (Female) Exam: Deferred Rectal (Female) Exam: Deferred Back Exam: Normal Inspection, Full Range of Motion. No: CVA Tenderness (L), CVA Tenderness (R) Extremities: Normal Inspection, Normal Range of Motion, No Pedal Edema, Normal Capillary Refill Neurological: Alert, Oriented, Normal Cognition, No Motor/Sensory Deficits Psychiatric: Normal Affect Skin Exam: Warm, Dry, Intact, Normal Color, No Rash Course - Vital Signs Last Recorded V/S: Last Vital Signs Temp 36.4 C 04/01/19 13:35 Pulse 80 04/01/19 13:35 Resp 16 04/01/19 13:35 BP 99/63 04/01/19 13:35 Pulse Ox 97 04/01/19 13:35 - Orders/Labs/Meds Labs: Laboratory Tests 04/01/19 Range/Units 12:37 Urine Color Yellow (Yellow) Urine Appearance Clear (Clear) Urine pH 7.0 (5.0-8.0) Ur Specific Ledger 1.025 (1.005-1.030) Urine Protein Negative (Negative) Urine Glucose (UA) Negative (Negative) Urine Ketones Negative (Negative) Urine Occult Blood Negative (Negative) Urine Nitrite Negative (Negative) Urine Bilirubin Negative (Negative) Urine Urobilinogen 0.2 (0.2-1.0) Ur Leukocyte Esterase Negative (Negative) Urine RBC 0-5 (0-5) /hpf Urine WBC 0-5 (0-5) /hpf Ur Epithelial Cells 0-5 (0-5) /hpf Urine Bacteria Few (FEW) /hpf Urine Mucus Few (FEW) /hpf Meds: Medications Discontinued Medications Generic Name Dose Route Start Last Admin Trade Name Freq PRN Reason Stop Dose Admin Hydromorphone HCl 0.5 mg 04/01/19 07:29 04/01/19 07:36 Dilaudid IVPUSH 04/01/19 07:30 0.5 mg ONETIME ONE Administration Lactated Ringer's 1,000 mls @ 125 mls/hr 04/01/19 07:30 04/01/19 07:37 Ringers, Lactated IV 125 mls/hr ASDIRECTED MARIPOSA Administration Metoclopramide HCl 7.5 mg 04/01/19 09:32 04/01/19 09:39 Reglan IVPUSH 04/01/19 09:33 7.5 mg ONETIME ONE Administration - Re-Assessments/Exams Free Text/Narrative Re-Assessment/Exam: 04/01/19 06:28 The etiology of the patient's upper abdominal and mid-back pain is not immediately clear. She complains of upper abdominal pain that has been coming and going for the past 3 days, without apparent precipitants, such as food. The CT scan of her abdomen and pelvis with IV contrast, performed in [facility], raises concerns for acute cholecystitis, however, on examination, she is tender only to a discrete location of her right upper quadrant, and nontender elsewhere, but her Mari's sign is negative. She states that her pain radiates through to her back, but then indicates her entire mid-back, bilaterally, which is not consistent with the pain of cholecystitis. The CT scan also indicated mild right hydronephrosis and mild dilatation of the proximal right ureter and moderate dilatation of part of its middle third, however, the CT scan did not find an opacity within the right ureter to explain the hydroureter and hydronephrosis, her urinalysis is unremarkable, her presentation is not consistent with a ureterolith, and she has no CVA tenderness on examination. For today's purposes, I have ordered an ultrasound of the right upper quadrant to evaluate for cholecystitis. 04/01/19 08:27 The patient is currently receiving the ultrasound of her right upper quadrant. Case discussed with Dr. Carlos, and care of the patient turned over to him at this time, for change of shift. Departure - Departure Disposition: Home, Self-Care 01 Clinical Impression: Biliary colic Abdominal pain Qualifiers: Abdominal location: right lower quadrant Qualified Code(s): R10.31 - Right lower quadrant pain - Discharge Information Prescriptions: Ondansetron [Zofran] 4 mg BUCCAL Q6H PRN #8 tab PRN Reason: nausea or vomiting oxyCODONE HCl/Acetaminophen [Percocet 5-325 mg Tablet] 1 - 2 each PO Q4H PRN # 12 tablet PRN Reason: pain relief. Instructions: Cholelithiasis Referrals: PCP,None [Primary Care Provider] - Forms: ED Department Discharge Additional Instructions: Evaluation the emergency room this morning in regards to referral from [facility] where he presented that we hours of the morning with severe right upper quadrant abdominal pain. Due to the fact that they did not have ultrasound availability were sent to [facility] for further evaluation. Ultrasound confirms multiple gallstones without any gallbladder wall thickening or biliary duct dilatation. Lab work also showed no evidence of pancreatitis or biliary tree obstruction. The pain settled down completely well in the ED after intravenous Dilaudid 0.5 mg and Reglan 7.5 mg for nausea relief. Therefore you have experienced a gallbladder attack this morning also called biliary colic. Due to your young age and the likelihood give further children or pregnancies you are advised to get her gallbladder removed. As you discussed she would prefer to do this in [place] where you have family members that can care for her children while you are recovering from surgery. In the mean time I would advise following a low-fat diet. I have written a prescription for Percocet tabs 5/3/ 25 milligrams strength and Zofran 4 mg sublingual. If you get similar type pain take the nausea pills of Zofran under the tongue and then 2 tablets of the Percocet to relieve pain and vomiting occurs or you can keep her pain medicine down and you have to seek medical care once again. I did send the notes to Dr. Peñaloza her physician in [place], [place]. Patient has been given a copy of her CD -ROM of her gallbladder ultrasound and the report. <BreannaTaurus Mary - Last Filed: 04/01/19 18:49> Course - Orders/Labs/Meds Labs: Laboratory Tests 04/01/19 Range/Units 12:37 Urine Color Yellow (Yellow) Urine Appearance Clear (Clear) Urine pH 7.0 (5.0-8.0) Ur Specific Ledger 1.025 (1.005-1.030) Urine Protein Negative (Negative) Urine Glucose (UA) Negative (Negative) Urine Ketones Negative (Negative) Urine Occult Blood Negative (Negative) Urine Nitrite Negative (Negative) Urine Bilirubin Negative (Negative) Urine Urobilinogen 0.2 (0.2-1.0) Ur Leukocyte Esterase Negative (Negative) Urine RBC 0-5 (0-5) /hpf Urine WBC 0-5 (0-5) /hpf Ur Epithelial Cells 0-5 (0-5) /hpf Urine Bacteria Few (FEW) /hpf Urine Mucus Few (FEW) /hpf - Re-Assessments/Exams Free Text/Narrative Re-Assessment/Exam: 04/01/19 09:33 patient is now vomiting likely due to side effect from the hydrocodone. Reglan 7.5 mg IV. Still awaiting the results of her 04/01/19 11:39 ultrasound of the liver and gallbladder is now completed. Liver shows no focal abnormality. Pancreas shows no discrete abnormality. Gallbladder shows layering of gallstones. No gallbladder wall thickening or biliary duct dilatation is seen the right kidney shows no hydronephrosis or mass and has a length of 10.3 cm. Portal vein shows normal hepatopedal flow. Essentially a normal study other than cholelithiasis. On reexamination the patient states that she is pain-free other than feeling a little discomfort right upper quadrant. She is essentially nontender on examination of the entire abdomen. She replaced reports her lochia is very minimal at this point time. Afebrile. I' m going to have her collect another urinalysis to make sure that she does not have a urinary tract infection causing her current symptomatology. Appears that she likely did experience biliary colic but at present things settle down nicely and she does not need to proceed with emergency cholecystectomy. 04/01/19 13:13 Repeat urinalysis is negative. Therefore diagnosis is acute biliary colic causing right upper quadrant abdominal pain. He was advised to watch her diet in terms of fat 5-year-old fat. She has plans to return to [place] where she has family members mom and dad they can look after the children well she has her surgery. The highest surgery be done as she is young and planning future pregnancies and she has a multitude of gallstones. I will discharge her with Percocet tablets 5/3/25 milligrams 10 tabs to have on hand in case she gets recurrent bout of very colic with Zofran 4 mg sublingual every 4 hours. For nausea relief. Departure - Departure Time of Disposition: 13:20 Condition: Fair - Discharge Information *PRESCRIPTION DRUG MONITORING PROGRAM REVIEWED*: Not Applicable *COPY OF PRESCRIPTION DRUG MONITORING REPORT IN PATIENT REAGAN: Not Applicable
[2019-04-01] MEDS ORDERED: HYDROmorphone 0.5 MG/0.5 ML Syringe IVPUSH ONE (07:29)
[2019-04-01] MEDS ORDERED: Lactated Ringers 1,000 ML IV SCH (07:30)
[2019-04-01] MEDS ORDERED: Metoclopramide 10 MG/2 ML SDV IVPUSH ONE (09:32)
--- NOTE | 2019-04-01 11:19 | US ---
Limited abdominal ultrasound: Multiple real-time images of the upper right abdomen were obtained. Comparison: No previous abdominal imaging. Liver shows no focal abnormality. Pancreas shows no discrete abnormality. Gallbladder shows layering gallstones. No gallbladder wall thickening or biliary duct dilatation is seen. Right kidney shows no hydronephrosis or mass and has a length of 10.3 cm. Portal vein shows normal hepatopedal flow. Impression: 1. Layering gallstones without gallbladder wall thickening or biliary duct dilatation. 2. Other portions of the right upper quadrant abdominal ultrasound are unremarkable. Diagnostic code #2 This report was dictated in [place] Standard Time
== END 2019-04-01 13:40 | disposition home or self-care (01) ==
LOC: JD.ED 05:51
DX: K80.50 Calculus of bile duct without cholangitis or cholecystitis without obstruction (principal); N13.2 Hydronephrosis with renal and ureteral calculous obstruction; Z88.5 Allergy status to narcotic agent
CPT/HCPCS: 76705; 81001; 96361; 96374; 96375; 99284; J1170; J2765; J7120